=== PATIENT | female | born 1965 | race Caucasian/White ===

== ENCOUNTER → 2021-11-22 13:22 | Outpatient (CLI) | payer OTHER, SELFPAY ==
[2021-12-03 07:23] LABS: Percent Free Testosterone 1.05 % (0.50-2.80); Testosterone Free 0.83 ng/dL (0.10-0.85); Testosterone Total 79.4 ng/dL (.)
== END ==
PROVIDERS: Referring Provider Specialist; Visit Provider Specialist
DX: N95.1 Menopausal and female climacteric states (principal)
CPT/HCPCS: 84402; 84403

== ENCOUNTER → 2022-05-30 13:57 | Outpatient (CLI) | payer OTHER, SELFPAY ==
[2022-06-10 17:08] LABS: Percent Free Testosterone 0.74 % (0.50-2.80); Testosterone Free 0.54 ng/dL (0.10-0.85); Testosterone Total 72.3 ng/dL (.)
[2022-06-12 14:46] LABS: Estradiol, Sensitive 35.6
== END ==
PROVIDERS: Visit Provider Specialist
DX: N95.1 Menopausal and female climacteric states (principal)
CPT/HCPCS: 82670; 84402; 84403

== ENCOUNTER → 2022-12-05 13:20 | Outpatient (CLI) | payer OTHER, SELFPAY ==
[2022-12-13 09:09] LABS: Percent Free Testosterone 1.29 % (0.50-2.80); Testosterone Free 1.47 ng/dL (0.10-0.85); Testosterone Total 114.1 ng/dL (.)
== END ==
PROVIDERS: PCP Family Medicine; Visit Provider Specialist
DX: N95.1 Menopausal and female climacteric states (principal)
CPT/HCPCS: 84402; 84403